=== PATIENT | male | born 1985 | race Two or more races ===

== ENCOUNTER 2018-10-23 21:58 | Emergency (ER) | payer BC ==
[~2018-10-23] VITALS: Ht 177.8 cm; Wt 77.1 kg
[~2018-10-23 21:58] MED LIST: BENADRYL50 MG PO; IBUPROFEN600 MG ORAL; NKM; NORCO 5-325 TA1 EACH ORAL; PREDNISONE20 MG PO; ZOFRAN ODT8 MG ORAL
[2018-10-23 22:13] VITALS: BP 137/91
--- NOTE | 2018-10-23 22:13 | NUR ---
ED Nurse Note: Patient presents with complaints of chest pain X3 days and diarrhea off and on d/t opiod dependence.
--- NOTE | 2018-10-23 23:17 | NUR ---
ED Nurse Note: Patient is resting IV at left AC 20G running 2 liter N/S to gravity.
[2018-10-23 23:27] LABS: BASOPHILS % (AUTO) 1.2 % (0.0-2.0); EOSINOPHILS % (AUTO) 2.5 % (0.0-3.0); HEMATOCRIT 48.7 % (42.0-52.0); HEMOGLOBIN 16.5 G/DL (14.2-18.0); LYMPHOCYTES % (AUTO) 32.1 % (20.0-45.0); MEAN CORPUSCULAR VOLUME 87 FL (80-99); MONOCYTES % (AUTO) 7.9 % (1.0-10.0); NEUTROPHILS % (AUTO) 56.3 % (45.0-75.0); PLATELET COUNT 211 K/UL (150-450); RED BLOOD COUNT 5.58 M/UL (4.70-6.10); RED CELL DISTRIBUTION WIDTH 11.7 % (11.6-14.8); WHITE BLOOD COUNT 6.2 K/UL (4.8-10.8)
[2018-10-23 23:37] LABS: ANION GAP 10 mmol/L (5-15); BLOOD UREA NITROGEN 17 mg/dL (7-18); CALCIUM 9.7 MG/DL (8.5-10.1); CARBON DIOXIDE 29 MMOL/L (21-32); CHLORIDE 101 MMOL/L (98-107); CREATININE 1.1 MG/DL (0.55-1.30); POTASSIUM 3.1 MMOL/L (3.5-5.1); SODIUM 140 MMOL/L (136-145)
[2018-10-24 00:30] VITALS: BP 139/96
[2018-10-24] MEDS ORDERED: CATAPRES0.1 MG ORAL (00:36)
[2018-10-24] MEDS ORDERED: ZOFRAN4 MG ORAL (00:36)
--- NOTE | 2018-10-24 00:36 | Emergency Room Report ---
History of Present Illness General Chief Complaint: Abdominal Pain Source: Patient Present Illness HPI This is a 33-year-old male who has a history of opiate abuse. He said he takes for wanted to Vicodin a day. Trying to quit cold turkey. He was worried about withdrawal symptoms. He has epigastric pain today. Feeling nauseous but no diarrhea or vomiting. No fever chills but denies any other complaint. Allergies: Coded Allergies: No Known Allergies (Unverified , 10/13/12) Patient History Past Medical History: see triage record, old chart reviewed Past Surgical History: none Pertinent Family History: none Social History: Reports: drug use; Denies: smoking Immunizations: other Reviewed Nursing Documentation: PMH: Agreed; PSxH: Agreed Nursing Documentation-PMH Past Medical History: No Stated History Review of Systems Eye: Denies: eye pain, blurred vision ENT: Denies: ear pain, nose congestion, throat swelling Respiratory: Denies: cough, shortness of breath Cardiovascular: Denies: chest pain, palpitations Gastrointestinal: Reports: abdominal pain; Denies: diarrhea, nausea, vomiting Musculoskeletal: Denies: back pain, joint pain Skin: Denies: rash Neurological: Denies: headache, numbness Endocrine: Denies: increased thirst, increased urine Hematologic/Lymphatic: Denies: easy bruising All Other Systems: negative except mentioned in HPI Physical Exam Vital Signs Date Time Temp Pulse Resp B/P (MAP) Pulse Ox O2 Delivery O2 Flow Rate FiO2 10/23/18 22:13 72 16 Room Air 10/23/18 22:13 98.2 137/91 95 vitals unremarkable Sp02 EP Interpretation: reviewed, normal General Appearance: well appearing, no apparent distress, alert Head: normocephalic, atraumatic Eyes: bilateral eye PERRL, bilateral eye EOMI ENT: hearing grossly normal, normal pharynx Neck: full range of motion, supple, no meningismus Respiratory: chest non-tender, lungs clear, normal breath sounds Cardiovascular #1: regular rate, rhythm, no murmur Gastrointestinal: normal bowel sounds, non tender, no mass, no organomegaly, no bruit, non-distended Musculoskeletal: back normal, gait/station normal, normal range of motion Psychiatric: mood/affect normal Skin: warm/dry Medical Decision Making Diagnostic Impression: Primary Impression: Opiate withdrawal ER Course Patient with opiate abuse and possibly early withdrawal symptoms. His blood pressure has been creeping up is here. He is given IV fluid. Small dose of clonidine and Zofran given. He felt better. We'll discharge home. Lab Results Impression labs unremarkable except low potassium Last Vital Signs Date Time Temp Pulse Resp B/P (MAP) Pulse Ox O2 Delivery O2 Flow Rate FiO2 10/23/18 22:13 98.2 72 16 137/91 95 Room Air Status: improved Disposition: HOME, SELF-CARE Condition: Stable Scripts Ondansetron (Zofran) 4 Mg Tablet 4 MG ORAL Q6H PRN for Nausea & Vomiting, #30 TAB 0 Refills Prov: Arcenio Perry MD 10/24/18 Clonidine Hcl* (CATAPRES*) 0.1 Mg Tablet 0.1 MG ORAL EVERY 8 HOURS, #21 TAB Prov: Arcenio Perry MD 10/24/18 Additional Instructions: Follow-up your doctor in 7 days. Return if symptom worsen. Arcenio Perry MD Oct 24, 2018 00:36
[2018-10-24 00:56] VITALS: BP 139/96
--- NOTE | 2018-10-24 00:56 | NUR ---
ED Nurse Note: Patient tolerated fluids well, patient cleared for Dc by Dr Perry. Patient ambulatory with steady gait IV removed, Id band removed by Kenyetta charge nurse. Patient has no complaints at this time.
== END 2018-10-24 00:56 | disposition home or self-care (01) ==
LOC: EMR 22:54
DX: F11.23 Opioid dependence with withdrawal (principal); R10.13 Epigastric pain; R11.0 Nausea
CPT/HCPCS: 36415; 80048; 84484; 85025; 96361; 96374; 99284; J2405